=== PATIENT | male | born 1965 | race Caucasian/White ===

== ENCOUNTER → 2021-03-17 | Outpatient (CLI) | payer OTHER ==
[~2021-03-17] MED LIST: GABA600T7 PO; IBUP-1623 PO; METH-640 PO; OMEG1CAP23 PO; TRAM50TA2 PO
[2021-03-17 13:22] LABS: MICROSCOPIC AUTO
[2021-03-17 14:25] LABS: BASOPHILS % (AUTO) 1 % (0-1); EOSINOPHILS % (AUTO) 4 % (1-7); LYMPHOCYTES % (AUTO) 22 % (22-44); MEAN CORPUSCULAR HEMOGLOBIN 28.5 pg (27.5-34.5); MEAN CORPUSCULAR HGB CONC 33.9 g/dL (33.2-36.2); MEAN PLATELET VOLUME 8.8 fL (7.4-10.4); MONOCYTES % (AUTO) 7 % (2-9); NEUTROPHILS % (AUTO) 66 % (42-75); PLATELET COUNT 227 x10^3/uL (130-400); RED BLOOD COUNT 5.08 x10^6/uL (4.38-5.82)
[2021-03-17 14:34] LABS: MD NO
[2021-03-17 14:40] LABS: ALBUMIN 3.7 g/dL (3.4-5.0); ANION GAP 5 mmol/L (5-15); CALCIUM 8.9 mg/dL (8.5-10.1); CHLORIDE 111 mmol/L (98-107)
[2021-03-17 14:43] LABS: ALANINE AMINOTRANSFERASE 71 U/L (12-78); ALKALINE PHOSPHATASE 95 U/L (45-117); BILIRUBIN,TOTAL 0.3 mg/dL (0.2-1.0); INTERNATIONAL NORMALIZED RATIO 1.01 (0.93-1.1); PROTHROMBIN TIME 10.8 Seconds (9.6-11.5); TOTAL PROTEIN 7.3 g/dL (6.4-8.2)
== END | disposition home or self-care (01) ==
LOC: STAR 12:06
PROVIDERS: ATTEND Neurological Surgery
DX: Z01.812 Encounter for preprocedural laboratory examination (principal); Z20.822 Contact with and (suspected) exposure to COVID-19; M43.16 Spondylolisthesis, lumbar region
CPT/HCPCS: 36415; 71046; 80053; 81001; 85025; 85610; 85730; 93005; U0003; U0005

== ENCOUNTER 2021-03-23 09:14 | Inpatient (IN) | payer OTHER ==
[~2021-03-23] VITALS: Ht 172.7 cm; Wt 119.7 kg
[2021-03-23 09:45] VITALS: BP 137/90
[2021-03-23] MEDS ORDERED: CHLORHEXIDINE 15 ML UDC ONE (09:48)
[2021-03-23] MEDS ORDERED: CHLORHEXIDINE 15 ML UDC PO ONE (10:00)
[2021-03-23] MEDS ORDERED: LACTATED RINGERS 1,000 ML IV SCH (10:00)
[2021-03-23] MEDS ORDERED: BUPIVACAINE/PF 0.5% ONE (12:51)
[2021-03-23] MEDS ORDERED: EPINEPHRINE 1 MG/ML, 1ML ONE (12:52)
[2021-03-23] MEDS ORDERED: VANCOMYCIN 1,000 MG ONE (12:52)
[2021-03-23] MEDS ORDERED: BACITRACIN 50,000 UNIT ONE (12:52)
[2021-03-23] MEDS ORDERED: PROPOFOL 50 ML ONE (13:05)
[2021-03-23] MEDS ORDERED: MIDAZOLAM 1 MG/ML, 2ML ONE (13:05)
[2021-03-23] MEDS ORDERED: FENTANYL PF 250 MCG/5ML ONE (13:06)
[2021-03-23] MEDS ORDERED: HYDROmorphone 1 MG/ML, 1ML INJ ONE ×2 (13:43→20:27)
[2021-03-23] MEDS ORDERED: PROPOFOL 10 MG/ML, 20ML ONE ×5 (14:03→15:55)
[2021-03-23] MEDS ORDERED: CEFAZOLIN 1,000 MG ONE ×3 (14:03)
[2021-03-23] MEDS ORDERED: ROCURONIUM 10MG/ML,5ML ONE (14:03)
[2021-03-23] MEDS ORDERED: DEXAMETHASONE 4 MG/ML, 1ML ONE (14:04)
[2021-03-23] MEDS ORDERED: SUCCINYLCHOLINE 20 MG/ML, 10ML ONE (14:04)
[2021-03-23] MEDS ORDERED: ONDANSETRON 2MG/ML, 2ML ONE (14:04)
[2021-03-23] MEDS ORDERED: PHENYLEPHRINE 10 MG/ML ONE ×2 (14:30→17:03)
[2021-03-23] MEDS ORDERED: FENTANYL PF 100 MCG/2ML ONE ×3 (18:43→20:12)
[2021-03-23] MEDS ORDERED: DIPHENHYDRAMINE 50 MG/ML, 1ML IVPush PRN ×2 (19:00→19:30)
[2021-03-23] MEDS ORDERED: PROMETHAZINE 25 MG/ML, 1ML IM PRN (19:00)
[2021-03-23] MEDS ORDERED: PHARMACY MAY ADJ FOR RENAL FX MC PRN (19:00)
[2021-03-23] MEDS ORDERED: METHOCARBAMOL 750 MG TABLET PO PRN (19:00)
[2021-03-23] MEDS ORDERED: METHOCARBAMOL 1,000 MG in DEXTROSE 5% 100 ML IV ONE (19:00)
[2021-03-23] MEDS ORDERED: HYDROmorphone 1 MG/ML, 1ML INJ IVPush PRN (19:00)
[2021-03-23] MEDS ORDERED: HYDROmorphone PCA 30 MG/30 ML IV PRN (19:00)
[2021-03-23] MEDS ORDERED: GABAPENTIN PO SCH (19:00)
[2021-03-23] MEDS ORDERED: MAGNESIUM HYDROXIDE 8%, 30ML UDC PO PRN (19:00)
[2021-03-23] MEDS ORDERED: MEPERIDINE/PF 100 MG/ML IM PRN (19:00)
[2021-03-23] MEDS ORDERED: BISACODYL 10 MG SUPP PR PRN (19:00)
[2021-03-23] MEDS ORDERED: LABETALOL 5MG/ML, 20ML IV PRN (19:30)
[2021-03-23] MEDS ORDERED: DIAZEPAM 5 MG/ML, 2ML IVPush PRN (19:30)
[2021-03-23] MEDS ORDERED: ONDANSETRON 2MG/ML, 2ML IVPush PRN (19:30)
[2021-03-23] MEDS ORDERED: morphine SULFATE 10 MG/ML, 1ML IVPush PRN (19:30)
[2021-03-23] MEDS ORDERED: PROMETHAZINE 25 MG/ML, 1ML IVPush PRN (19:30)
[2021-03-23] MEDS ORDERED: MEPERIDINE/PF 25MG/0.5ML IVPush PRN (19:30)
[2021-03-23] MEDS ORDERED: EPHEDRINE 50 MG/ML, 1ML IVPush PRN (19:30)
[2021-03-23] MEDS ORDERED: OXYcodone 5 MG/5 ML ORAL.SOL UDC PO PRN (19:30)
[2021-03-23] MEDS ORDERED: EPHEDRINE 50 MG/ML, 1ML IM PRN (19:30)
[2021-03-23] MEDS ORDERED: OXYcodone 5 MG/5 ML ORAL.SOL UDC ONE (20:12)
[2021-03-23] MEDS: FENTANYL PF 100 MCG/2ML IV PRN ×2 (20:13→20:26)
[2021-03-23] MEDS: HYDROmorphone 1 MG/ML, 1ML INJ IVPush PRN ×2 (20:30→20:45)
[2021-03-23] MEDS: SODIUM CHLORIDE FLUSH 10ML SYR IVF SCH (21:00)
[2021-03-23] MEDS: CEFAZOLIN PMX 1GM/50ML 50 ML IVPB SCH (22:30)
[2021-03-23] MEDS: NS + 20MEQ KCL 1,000 ML IV SCH (22:30)
[2021-03-24] MEDS: DIAZEPAM 5 MG TABLET PO PRN ×3 (00:28→22:36)
[2021-03-24] MEDS: ONDANSETRON 2MG/ML, 2ML IVPush PRN ×2 (02:07→11:18)
[2021-03-24 03:11] VITALS: BP 132/79
[2021-03-24 05:26] LABS: BASOPHILS % (AUTO) 0 % (0-1); EOSINOPHILS % (AUTO) 0 % (1-7); LYMPHOCYTES % (AUTO) 7 % (22-44); MEAN CORPUSCULAR HEMOGLOBIN 28.4 pg (27.5-34.5); MEAN CORPUSCULAR HGB CONC 33.7 g/dL (33.2-36.2); MEAN PLATELET VOLUME 8.1 fL (7.4-10.4); MONOCYTES % (AUTO) 6 % (2-9); NEUTROPHILS % (AUTO) 87 % (42-75); PLATELET COUNT 255 x10^3/uL (130-400); RED BLOOD COUNT 4.51 x10^6/uL (4.38-5.82)
[2021-03-24 05:35] LABS: ANION GAP 7 mmol/L (5-15); CALCIUM 8.4 mg/dL (8.5-10.1); CHLORIDE 108 mmol/L (98-107); CREATININE 1.04 mg/dL (0.7-1.3)
[2021-03-24] MEDS: CEFAZOLIN PMX 1GM/50ML 50 ML IVPB SCH (06:11)
[2021-03-24 07:10] VITALS: BP 130/77
[2021-03-24] MEDS: NS + 20MEQ KCL 1,000 ML IV SCH ×2 (08:30→17:50)
[2021-03-24] MEDS ORDERED: MEDROL 4MG DOSEPAK PO SCH (11:00)
[2021-03-24] MEDS: OXYcodone IR 5MG TABLET PO PRN ×3 (11:18→21:49)
[2021-03-24] MEDS: SENNA/DOCUSATE TABLET PO SCH (11:19)
[2021-03-24] MEDS: SODIUM CHLORIDE FLUSH 10ML SYR IVF SCH ×2 (11:29→20:23)
[2021-03-24 13:23] VITALS: BP 126/69
[2021-03-24 19:57] VITALS: BP 136/76
[2021-03-24] MEDS: GABAPENTIN 250 MG/5 ML ORAL SOL PO SCH (20:23)
[2021-03-25] MEDS: OXYcodone IR 5MG TABLET PO PRN ×4 (01:46→14:03)
[2021-03-25 01:50] VITALS: BP 109/59
[2021-03-25] MEDS: NS + 20MEQ KCL 1,000 ML IV SCH ×2 (04:30→07:26)
[2021-03-25] MEDS: DIAZEPAM 5 MG TABLET PO PRN ×2 (04:33→10:27)
[2021-03-25 05:28] LABS: BASOPHILS % (AUTO) 0 % (0-1); EOSINOPHILS % (AUTO) 0 % (1-7); LYMPHOCYTES % (AUTO) 10 % (22-44); MEAN CORPUSCULAR HEMOGLOBIN 28.2 pg (27.5-34.5); MEAN CORPUSCULAR HGB CONC 33.2 g/dL (33.2-36.2); MEAN PLATELET VOLUME 8.2 fL (7.4-10.4); MONOCYTES % (AUTO) 9 % (2-9); NEUTROPHILS % (AUTO) 80 % (42-75); PLATELET COUNT 247 x10^3/uL (130-400); RED BLOOD COUNT 4.39 x10^6/uL (4.38-5.82)
[2021-03-25 05:33] LABS: CHLORIDE 106 mmol/L (98-107)
[2021-03-25 05:38] LABS: ANION GAP 5 mmol/L (5-15); CALCIUM 8.8 mg/dL (8.5-10.1); CREATININE 0.96 mg/dL (0.7-1.3)
[2021-03-25 07:18] VITALS: BP 122/67
[2021-03-25] MEDS: SENNA/DOCUSATE TABLET PO SCH (08:11)
[2021-03-25] MEDS: SODIUM CHLORIDE FLUSH 10ML SYR IVF SCH (09:00)
[2021-03-25] MEDS: GABAPENTIN 250 MG/5 ML ORAL SOL PO SCH (10:27)
[2021-03-25] MEDS ORDERED: OXYC1TAB18 PO (11:23)
[2021-03-25] MEDS ORDERED: METH-640 PO (11:23)
[2021-03-25] MEDS ORDERED: METH4TAB6 PO (11:24)
[2021-03-25 14:12] VITALS: BP 133/79
== END 2021-03-25 14:50 | disposition home or self-care (01) | DRG 455 ==
LOC: OUT 09:14 → EDSTATUS 13:00 → ORIP 18:59 → 4NE 21:22 → DCLOUNGE 03-25 14:35
PROVIDERS: ADMIT Neurological Surgery; ATTEND Neurological Surgery
PROC: 0SG0071 Fusion of Lumbar Vertebral Joint with Autologous Tissue Substitute, Posterior Approach, Posterior Column, Open Approach (ICD-10-PCS; 2021-03-23)
PROC: 0SG30AJ Fusion of Lumbosacral Joint with Interbody Fusion Device, Posterior Approach, Anterior Column, Open Approach (ICD-10-PCS; 2021-03-23)
PROC: 0SG3071 Fusion of Lumbosacral Joint with Autologous Tissue Substitute, Posterior Approach, Posterior Column, Open Approach (ICD-10-PCS; 2021-03-23)
PROC: 00NY0ZZ Release Lumbar Spinal Cord, Open Approach (ICD-10-PCS; 2021-03-23)
PROC: 01NB0ZZ Release Lumbar Nerve, Open Approach (ICD-10-PCS; 2021-03-23)
PROC: 0SB20ZZ Excision of Lumbar Vertebral Disc, Open Approach (ICD-10-PCS; 2021-03-23)
PROC: 4A11X4G Monitoring of Peripheral Nervous Electrical Activity, Intraoperative, External Approach (ICD-10-PCS; 2021-03-23)
PROC: 8E0W0CZ Robotic Assisted Procedure of Trunk Region, Open Approach (ICD-10-PCS; 2021-03-23)
PROC: 0SG10AJ Fusion of 2 or more Lumbar Vertebral Joints with Interbody Fusion Device, Posterior Approach, Anterior Column, Open Approach (ICD-10-PCS; principal; 2021-03-23 13:00)
DX: M48.061 Spinal stenosis, lumbar region without neurogenic claudication (principal); M43.16 Spondylolisthesis, lumbar region; M40.36 Flatback syndrome, lumbar region; M48.07 Spinal stenosis, lumbosacral region
CPT/HCPCS: 36415; 72100; S0020; 72131; 80048; 85025; 86850; 86900; 95938; 95941; C1713; C1776; G0378; J0171; J0690; J1100; J1170; J2250; J2405; J2704; J3010; J3370; J3480; J7509; C1762; J0330; J2370; J2800; J7120